=== PATIENT | female | born 1950 | race Caucasian/White ===

== ENCOUNTER → 2021-09-24 | Outpatient (CLI) | payer OTHER ==
[~2021-09-24] MED LIST: FIBER500 MG PO; HYDROCHLOROTHIA25 M1 PO; IBUPROFEN 800800 M1 PO
[2021-09-24 09:13] LABS: HEMATOCRIT 42.4 % (37.0-47.0); HEMOGLOBIN 14.7 gm/dL (12.0-15.0); MCH 32.5 pg (26.0-34.0); MCHC 34.6 g/dL (28.0-37.0); MCV 93.9 fL (80.0-100.0); RBC 4.51 mil/uL (4.20-5.00); RDW 12.8 % (10.5-14.5); WBC 5.7 thou/uL (4.0-11.0)
[2021-09-24 09:28] LABS: ALBUMIN 3.9 g/dL (3.4-5.0); CREATININE 0.7 mg/dL (0.6-1.0); POTASSIUM 3.6 mmol/L (3.5-5.1); TOTAL BILIRUBIN 0.6 mg/dL (0.2-1.0); TOTAL PROTEIN 7.8 g/dL (6.4-8.2)
[2021-09-24 09:29] LABS: APTT 23.6 Seconds (24.5-32.8); INR 0.95; PROTIME 10.4 Seconds (10.5-12.1)
[2021-09-24 09:43] LABS: URINE BILIRUBIN NEGATIVE (Negative); URINE BLOOD NEGATIVE (Negative); URINE CLARITY CLEAR; URINE COLOR YELLOW; URINE GLUCOSE-RANDOM* NEGATIVE (Negative); URINE KETONES NEGATIVE (Negative); URINE NITRITE-REFLEX NEGATIVE (Negative); URINE PROTEIN (DIPSTICK) NEGATIVE (Negative); URINE SPECIFIC GRAVITY 1.025 (1.005-1.035); URINE UROBILINOGEN 0.2 E.U./dl (0.2-1.0)
[2021-09-24 09:45] LABS: URINE LEUKOCYTES-REFLEX 1+ (Negative)
[2021-09-24 11:13] LABS: SQUAMOUS >10 Many /LPF (0-3)
[2021-09-24 11:14] LABS: BACTERIA-REFLEX 1-9 Few /HPF (None Seen); CASTS None Seen /LPF (None Seen); CRYSTALS None Seen /LPF (None Seen); URINE RBC 1-2 Rare /HPF (NONE SEEN); URINE WBC-REFLEX 0-5 Rare /HPF (0-5)
--- NOTE | 2021-09-24 12:06 | EKG ---
[place] [address] [facility] [place] [address] ELECTROCARDIOGRAM REPORT Name: JOCELYN FOX [id number] Admission: 09/24/21 Attend Phys: Madhav Lopez, Discharge: Date of : 52 Report #: [id number] [facility] Test Date: 2021-09-24 Test Time: 09:08:59 Pat Name: JOCELYN FOX Department: Room: Gender: F Kiln Repairer: Paramjit DUARTE : 1950 Requested By: Madhav Lopez Order Number: [id number] MD: Indra Burroughs Measurements Intervals [place] Rate: 74 P: -64 OK: 110 QRS: 58 QRSD: 92 T: 58 QT: 391 QTc: 434 Interpretive Statements Sinus or ectopic atrial rhythm Borderline short OK interval Nonspecific T abnormalities, anterior leads No previous ECG available for comparison Electronically Signed On 09-24-2021 12:05:44 [employer]ACK [employer] by Indra Burroughs [email or web address] <ELECTRONICALLY SIGNED> By: Indra Burroughs MD, [facility] 09/24/21 1205 [id number] 7 Indra Burroughs MD, FACC /EPI
== END ==
LOC: PAC 08:25
PROVIDERS: ATTEND Specialist
DX: I10 Essential (primary) hypertension (principal)

== ENCOUNTER 2021-10-02 06:09 | Observation (INO) | payer OTHER ==
[~2021-10-02] VITALS: Ht 165.1 cm; Wt 81.6 kg
[2021-10-02] VITALS (9 sets, daily range): BP systolic 128–153; BP diastolic 63–75
--- NOTE | 2021-10-02 11:40 | NUR ---
Pt transferred to unit from PACU. Pt a&ox4. C/o pain rt neck. Prn pain medications administered. VSS. Hospitalist consulted. Family at bedside. Call light within reach. Will continue to monitor.
[2021-10-02 16:53] LABS: URINE BILIRUBIN NEGATIVE (Negative); URINE BLOOD NEGATIVE (Negative); URINE CLARITY CLEAR; URINE COLOR YELLOW; URINE GLUCOSE-RANDOM* NEGATIVE (Negative); URINE KETONES NEGATIVE (Negative); URINE LEUKOCYTES-REFLEX NEGATIVE (Negative); URINE NITRITE-REFLEX NEGATIVE (Negative); URINE PROTEIN (DIPSTICK) NEGATIVE (Negative); URINE SPECIFIC GRAVITY >= 1.030 (1.005-1.035); URINE UROBILINOGEN 0.2 E.U./dl (0.2-1.0)
--- NOTE | 2021-10-03 01:56 | NUR ---
ASSUMED PT CARE AT 1900.PT DENIED PAIN SO FAR.PT UP ADLIB IN HER ROOM WITH A STEADY GAIT.DRSG TO HER ANTERIOR NECK C/D/I.PT DENIED PAIN SO FAR.IV ABX GIVEN DIRECTED.PT ABLE TO MAKE HER NEEDS KNOWN.CALL LIGHT WITHIN REACH.
[2021-10-03 06:37] LABS: ABSOLUTE NEUTROPHILS 6.5 thou/uL (1.4-8.2); HEMOGLOBIN 13.1 gm/dL (12.0-15.0); LYMPHOCYTES 16.3 % (24.0-44.0); MCH 33.1 pg (26.0-34.0); MCHC 35.4 g/dL (28.0-37.0); MCV 93.4 fL (80.0-100.0); MONOCYTES 6.2 % (1.0-8.0); PLATELET COUNT 207 thou/uL (150-400); POLYS 76.5 % (36.0-66.0); RBC 3.96 mil/uL (4.20-5.00); RDW 12.3 % (10.5-14.5); WBC 8.5 thou/uL (4.0-11.0)
[2021-10-03 07:07] LABS: CALCIUM 8.6 mg/dL (8.5-10.1); CREATININE 0.8 mg/dL (0.6-1.0); POTASSIUM 3.4 mmol/L (3.5-5.1)
[2021-10-03 07:22] VITALS: BP 119/59
--- NOTE | 2021-10-03 09:30 | NUR ---
ORDERS FOR EVAL AND TREAT. OBSERVED Pt GET OUT OF BED AND AMBULATE IN HER ROOM WITHOUT DIFFICULTY. SPOKE WITH Pt WHO STATES HAVING NO DIFFICULTY WITH BALANCE OR MOBILITY AND FEELS SAFE FOR HOME. Pt DECLINING A FORMAL P.T. EVAL BUT APPEARS SAFE FOR HOME. NURSING INFORMED.
--- NOTE | 2021-10-03 10:44 | NUR ---
A/O X 4. ROOM AIR. AD SHALOM. RIGHT AC IV D/C'D GAUZE APPILED, RIGHT NECK TELFA DRY, CLEAN, INTACT.
[2021-10-03] MEDS ORDERED: METHOCARBAMOL500 M2 PO (13:03)
[2021-10-03] MEDS ORDERED: HYDROCODON-ACE1 EAC7 PO (13:03)
[2021-10-03 13:09] VITALS: BP 119/59
== END 2021-10-03 13:43 | disposition home or self-care (01) ==
LOC: OR → TBA 06:19 → OR 07:13 → 4S 10:18 → OR 10:19 → 4S 10-03 13:43
PROVIDERS: Nurse Practitioner; ADMIT Specialist; ATTEND Specialist
DX: M50.221 Other cervical disc displacement at C4-C5 level (principal); I10 Essential (primary) hypertension; A49.02 Methicillin resistant Staphylococcus aureus infection, unspecified site; Z85.41 Personal history of malignant neoplasm of cervix uteri; Z90.710 Acquired absence of both cervix and uterus; Z79.899 Other long term (current) drug therapy
CPT/HCPCS: 10102; 50010; 50101; 50402; 51725; 51751; 54118; 56524; 56526; 56532; 57103; 58456; 58792; 58846; 59095; 62110; 62900; 65130; 70005